=== PATIENT | female | born 1995 | race Caucasian/White ===

== ENCOUNTER 2022-04-10 09:29 | Emergency (ER) | payer BC ==
[~2022-04-10] VITALS: Ht 165.1 cm; Wt 68.0 kg
--- NOTE | 2022-04-10 09:48 | NUR ---
DR CARLOS AT BEDSIDE
--- NOTE | 2022-04-10 09:58 | NUR ---
Patient discharged to home in stable condition, ambulating. Written and verbal after care instructions given. Patient verbalizes understanding of instruction.
[2022-04-10 09:59] VITALS: BP 130/85
== END 2022-04-10 09:59 | disposition home or self-care (01) ==
LOC: ER 09:34
DX: S06.0XAA Concussion with loss of consciousness status unknown, initial encounter (principal); Z88.0 Allergy status to penicillin; W20.8XXA Other cause of strike by thrown, projected or falling object, initial encounter; Y93.89 Activity, other specified; Y92.89 Other specified places as the place of occurrence of the external cause; Y99.8 Other external cause status